=== PATIENT | male | born 1945 | race Caucasian/White ===

== ENCOUNTER 2017-04-05 21:47 | Emergency (ER) | payer OTHER ==
[2017-04-06 03:47] LABS: BILIRUBIN NEGATIVE (NEGATIVE); BLOOD NEGATIVE Ery/uL (NEGATIVE); CLARITY CLEAR (CLEAR); COLOR YELLOW (YELLOW); GLUCOSE (U) NORMAL (NORMAL); KETONE (U) NEGATIVE (NEGATIVE); LEUKOCYTES NEGATIVE Leu/uL (NEGATIVE); NITRITE NEGATIVE (NEGATIVE); PROTEIN NEGATIVE (NEGATIVE)
== END 2017-04-06 05:14 | disposition home or self-care (01) ==
LOC: FER 21:47
PROVIDERS: Emergency Medicine
DX: R10.9 Unspecified abdominal pain (principal); N50.811 Right testicular pain; M19.90 Unspecified osteoarthritis, unspecified site; Z90.49 Acquired absence of other specified parts of digestive tract; Z98.890 Other specified postprocedural states
CPT/HCPCS: 81003; 99284

== ENCOUNTER 2020-11-17 15:22 | Emergency (ER) | payer OTHER ==
[~2020-11-17 15:22] MED LIST: TRAMADOL HCL50 MG PO
[2020-11-17 17:28] LABS: BASOPHIL 0.7 % (0-2); EOSINOPHIL 1.4 % (0-7); HCT 42.3 % (42.0-52.0); HGB 14.1 g/dl (13.2-18.0); LYMPHOCYTE 25.1 % (15-48); MCH 31.8 pg (25.0-31.0); MCHC 33.3 g/dL (32.0-36.0); MCV 95.3 fL (78.0-100.0); MONOCYTE 7.4 % (0-12); MPV 9.7 fL (6.0-9.5); NEUTROPHIL 65.2 % (41-80); NRBC 0; PLT 200 K/uL (150-400); RBC 4.44 M/uL (4.70-6.00); RDW 12.7 % (11.5-14.0); WBC 8.1 K/uL (4.0-10.5)
[2020-11-17 17:59] LABS: ALBUMIN 3.3 g/dL (3.4-5.0); BILIRUBIN - TOTAL 1.1 mg/dL (0.2-1.0); BUN/CREAT RATIO (CALC) 14.3 RATIO; CREATININE 1.19 mg/dL (0.67-1.17); GLOBULIN (CALCULATION) 3.5 g/dL; POTASSIUM 4.4 mmol/L (3.5-5.1); TOTAL PROTEIN 6.8 g/dL (6.4-8.2)
== END 2020-11-17 19:05 | disposition home or self-care (01) ==
LOC: FER 15:22
PROVIDERS: Emergency Medicine
DX: M62.838 Other muscle spasm (principal); I10 Essential (primary) hypertension; J44.9 Chronic obstructive pulmonary disease, unspecified; F03.90 Unspecified dementia, unspecified severity, without behavioral disturbance, psychotic disturbance, mood disturbance, and anxiety; Z91.041 Radiographic dye allergy status; Z79.899 Other long term (current) drug therapy
CPT/HCPCS: 36415; 80053; 83735; 84484; 85025; 99283

== ENCOUNTER 2022-07-02 16:23 | Emergency (ER) | payer OTHER ==
[2022-07-02 17:24] LABS: EOSINOPHIL 1.6 % (0-7); HCT 38.2 % (42.0-52.0); LYMPHOCYTE 27.8 % (15-48); MCH 31.5 pg (25.0-31.0); MCV 92.5 fL (78.0-100.0); MONOCYTE 6.3 % (0-12); MPV 10.1 fL (6.0-9.5); NEUTROPHIL 63.2 % (41-80); NRBC 0; PLT 186 K/uL (150-400); RBC 4.13 M/uL (4.70-6.00); RDW 12.9 % (11.5-14.0); WBC 7.1 K/uL (4.0-10.5)
[2022-07-02 17:41] LABS: INR 1.21 (0.9-1.2); PROTHROMBIN TIME 14.9 SECONDS (11.9-13.9)
[2022-07-02 18:06] LABS: CORONAVIRUS 2019 SARS-COV-2 NEGATIVE (NEGATIVE); INFLUENZA A NAA NEGATIVE (NEGATIVE)
[2022-07-02 18:08] LABS: ALBUMIN 3.6 g/dL (3.4-5.0); ALKALINE PHOSHATASE 82 U/L (46-116); ALT 17 U/L (16-63); AST 16 U/L (15-37); BUN 23 mg/dL (7-18); BUN/CREAT RATIO (CALC) 19.7 RATIO; CHLORIDE 104 mmol/L (98-107); CO2 (BICARBONATE) 25 mmol/L (21-32); CREATININE 1.17 mg/dL (0.67-1.17); GLOBULIN (CALCULATION) 3.3 g/dL; GLUCOSE 89 mg/dL (74-106); POTASSIUM 4.1 mmol/L (3.5-5.1); TOTAL PROTEIN 6.9 g/dL (6.4-8.2)
[2022-07-02 18:09] LABS: ACETAMINOPHEN (TYLENOL) < 2.0 ug/mL (10.0-30.0)
[2022-07-02 20:54] LABS: BUN/CREAT RATIO (CALC) 17.9 RATIO; CREATININE 1.17 mg/dL (0.67-1.17)
[2022-07-02 21:32] LABS: BILIRUBIN NEGATIVE (NEGATIVE); BLOOD NEGATIVE Ery/uL (NEGATIVE); CLARITY CLEAR (CLEAR); COLOR YELLOW (YELLOW); GLUCOSE (U) NORMAL (NORMAL); LEUKOCYTES NEGATIVE Leu/uL (NEGATIVE); NITRITE NEGATIVE (NEGATIVE); PROTEIN NEGATIVE (NEGATIVE); SPECIFIC GRAVITY 1.025 (1.001-1.030)
[2022-07-02 21:34] LABS: ECSTASY (MDMA) NEGATIVE (NEGATIVE); MARIJUANA (THC) NEGATIVE (NEGATIVE); METHADONE NEGATIVE (NEGATIVE); OPIATES NEGATIVE (NEGATIVE)
[2022-07-02 21:35] LABS: AMPHETAMINES NEGATIVE (NEGATIVE); BARBITURATES NEGATIVE (NEGATIVE); OXYCODONE NEGATIVE (NEGATIVE)
[2022-07-02] MEDS ORDERED: FLOMAX0.4 MG PO (21:54)
== END 2022-07-02 22:31 | disposition home or self-care (01) ==
LOC: FER 16:23
PROVIDERS: Emergency Medicine; Internal Medicine
DX: R53.1 Weakness (principal); R53.83 Other fatigue; I10 Essential (primary) hypertension; J44.9 Chronic obstructive pulmonary disease, unspecified; G30.9 Alzheimer's disease, unspecified; F02.80 Dementia in other diseases classified elsewhere, unspecified severity, without behavioral disturbance, psychotic disturbance, mood disturbance, and anxiety; Z20.822 Contact with and (suspected) exposure to COVID-19; Z87.891 Personal history of nicotine dependence; Z91.040 Latex allergy status; Z91.041 Radiographic dye allergy status
CPT/HCPCS: 36415; 70450; 71250; 80048; 80053; 80305; 81003; 82140; 83605; 83880; 84484; 85025; 85610; 85730; 93005; G0480; J7030; U0002